=== PATIENT | male | born 1965 | race Caucasian/White ===

== ENCOUNTER 2022-09-28 13:33 | Emergency (ER) | payer OTHER ==
[~2022-09-28] VITALS: Ht 167.6 cm; Wt 79.9 kg
[2022-09-28 13:42] VITALS: BP 154/109
--- NOTE | 2022-09-28 14:04 | NUR ---
Dr. Cordon evaluating patient at bedside.
[2022-09-28] MEDS ORDERED: KETOROLAC 30 MG/ML VIAL IM ONE (14:20)
--- NOTE | 2022-09-28 14:20 | NUR ---
57 y/o male bib self with c/o left ankle pain that radiates to left calf x 4 days. Patient says he was diagnosed with sciatic pain and pain started about 3 months ago. Denies any recent trauma or injury. Patient denies fever, chilld or SOB. Medical History: Denies NKDA
[2022-09-28] MEDS ORDERED: CYCL-711 PO (14:29)
[2022-09-28] MEDS ORDERED: LIDO1ADH38 TP (14:29)
[2022-09-28] MEDS ORDERED: [UNRECOGNIZED DRUG - CODE] PO (14:29)
--- NOTE | 2022-09-28 15:01 | NUR ---
Patient discharged with v/s stable. Written and verbal after care instructions given and explained. Patient alert, oriented and verbalized understanding of instructions. Ambulatory with steady gait. All questions addressed prior to discharge. ID band removed. Patient advised to follow up with PMD. Rx of LIDOCAINE PATCH, NAPROXEN given. Patient educated on indication of medication including possible reaction and side effects. Opportunity to ask questions provided and answered.
== END 2022-09-28 15:00 | disposition home or self-care (01) ==
LOC: MED 13:33
DX: S99.922A Unspecified injury of left foot, initial encounter (principal); M54.50 Low back pain, unspecified; X58.XXXA Exposure to other specified factors, initial encounter; Y93.89 Activity, other specified; Y92.89 Other specified places as the place of occurrence of the external cause; Y99.8 Other external cause status
CPT/HCPCS: 96372; 99283; J1885

== ENCOUNTER 2024-08-18 15:44 | Emergency (ER) | payer MEDICARE, OTHER ==
[~2024-08-18] VITALS: Ht 167.6 cm; Wt 90.3 kg
[~2024-08-18 15:44] MED LIST: CYCL-711 PO; LIDO1ADH38 TP; [UNRECOGNIZED DRUG - CODE] PO
[2024-08-18 15:54] VITALS: BP 135/79; PULSE 67; RESP 18; TEMP 97.5; O2SAT 97
[2024-08-18] MEDS ORDERED: BACI-418 TP (17:00)
[2024-08-18] MEDS: LIDOCAINE MPF 1% 10 MG/ML VIAL INJ ONE (17:00)
[2024-08-18] MEDS: ACETAMINOPHEN EXTRA STRENGTH 500 MG TAB PO ONE (17:00)
[2024-08-18 17:14] VITALS: BP 129/76; PULSE 70; RESP 18; TEMP 36.39180; O2SAT 97
== END 2024-08-18 17:14 | disposition home or self-care (01) ==
LOC: MED 15:44
DX: S61.411A Laceration without foreign body of right hand, initial encounter (principal); Z79.899 Other long term (current) drug therapy; Z98.890 Other specified postprocedural states; W26.8XXA Contact with other sharp object(s), not elsewhere classified, initial encounter; Y93.89 Activity, other specified; Y92.89 Other specified places as the place of occurrence of the external cause; Y99.8 Other external cause status
CPT/HCPCS: 12002; 90471; 90715; 99283; J2003

== ENCOUNTER 2024-08-21 09:37 | Emergency (ER) | payer MEDICARE, OTHER ==
[~2024-08-21] VITALS: Ht 167.6 cm; Wt 87.2 kg
[~2024-08-21 09:37] MED LIST changes: +BACI-418 TP
[2024-08-21 09:43] VITALS: BP 123/72; PULSE 83; RESP 16; TEMP 97.7; O2SAT 98
== END 2024-08-21 10:48 | disposition home or self-care (01) ==
LOC: MED 09:37
DX: S61.011D Laceration without foreign body of right thumb without damage to nail, subsequent encounter (principal); Z79.899 Other long term (current) drug therapy; X58.XXXD Exposure to other specified factors, subsequent encounter
CPT/HCPCS: 99281